=== PATIENT | male | born 1980 | race Hispanic/Latino ===

== ENCOUNTER 2020-11-01 17:26 | Emergency (ER) | payer OTHER ==
[~2020-11-01] VITALS: Ht 180.3 cm; Wt 124.7 kg
[2020-11-01] MEDS ORDERED: SODIUM CHLORIDE 0.9% 1000ML 1,000 ML IV SCH (19:15)
[2020-11-01] MEDS ORDERED: SODIUM CHLORIDE 0.9% 1000ML 1,000 ML ONE (19:28)
[2020-11-01] MEDS ORDERED: LORAZEPAM 0.5 MG TAB PO ONE (19:30)
[2020-11-01] MEDS ORDERED: LORAZEPAM 0.5 MG TAB ONE (19:52)
[2020-11-01 21:53] VITALS: BP 158/96
[2020-11-01] MEDS ORDERED: ATIVAN1 MG PO (22:02)
== END 2020-11-01 22:12 | disposition home or self-care (01) ==
LOC: FSED 17:37
DX: F41.0 Panic disorder [episodic paroxysmal anxiety] (principal); F41.9 Anxiety disorder, unspecified; F14.10 Cocaine abuse, uncomplicated; Z72.89 Other problems related to lifestyle; D72.829 Elevated white blood cell count, unspecified; R03.0 Elevated blood-pressure reading, without diagnosis of hypertension; G47.30 Sleep apnea, unspecified; E66.9 Obesity, unspecified; M10.9 Gout, unspecified
CPT/HCPCS: 71046; 80048; 80053; 81003; 82553; 84484; 85025; 99284; J7030